=== PATIENT | female | born 1960 | race Caucasian/White ===

== ENCOUNTER → 2016-07-24 | Outpatient (CLI) | payer BC ==
[~2016-07-24] MED LIST: FLEXERIL10 MG PO; ISOSORBIDE30 MG PO; KLORVESS EFFER20 ME1 PO; LIPITOR; NORCO 325 MG-51 TAB PO; PLAVIX 75MG TAB75 MG PO; PREMARIN0.45 MG PO; PREMARIN0.9 MG PO; RANEXA500 MG PO; TRAZODONE50 MG PO; VALIUM5 MG PO
== END ==
LOC: COL.RAD 11:04
DX: R22.1 Localized swelling, mass and lump, neck (principal)

== ENCOUNTER → 2016-09-04 | Outpatient (CLI) | payer BC ==
[~2016-09-04] VITALS: Ht 157.5 cm; Wt 56.8 kg
[2016-09-04 09:12] VITALS: BP 118/77; PULSE 71
[2016-09-04 10:22] VITALS: BP 124/75; PULSE 64
== END ==
LOC: COL.RAD 08:56
DX: E04.1 Nontoxic single thyroid nodule (principal)
CPT/HCPCS: 13756

== ENCOUNTER 2016-11-28 19:43 | Emergency (ER) | payer BC ==
[~2016-11-28] VITALS: Ht 157.5 cm; Wt 57.3 kg
[2016-11-28 19:45] VITALS: TEMP 97.7
[2016-11-28] MEDS ORDERED: PREMARIN0.45 MG PO (20:01)
[2016-11-28 20:37] LABS: BASO % 0.5 % (0.0-2.0); EOS # 0.1 (0.0-0.7); EOS % 1.3 % (0-4.0); GRAN % 57.5 % (42.2-75.2); HEMATOCRIT 39.4 % (37.0-47.0); HEMOGLOBIN 13.6 g/dl (12.5-16.0); LYMPH % 34.3 % (20.0-51.0); MEAN CELL VOLUME 87 fl (80.0-100.0); MEAN CORPUSCULAR HEMOGLOBIN 30 pg (27.0-31.0); MEAN CORPUSCULAR HGB CONC 35 g/dl (33.0-37.0); MEAN PLATELET VOLUME 10.5 fl (7.4-10.4); MONO # 0.5 (0.1-0.6); MONO % 6.2 % (1.7-9.3); PLATELET COUNT 267 K/mm3 (130-400); RED BLOOD COUNT 4.53 M/mm3 (4.10-5.30); WHITE BLOOD COUNT 8.7 K/mm3 (4.8-10.8)
[2016-11-28 20:42] LABS: PH 6 (5-8); SQUAMOUS EPITHELIAL 0-2 /hpf; URINE APPEARANCE Clear; URINE BACTERIA None Seen /hpf; URINE BILIRUBIN Negative (NEGATIVE); URINE BLOOD Negative (NEGATIVE); URINE COLOR Yellow; URINE GLUCOSE Negative (NEGATIVE); URINE KETONE Negative (NEGATIVE); URINE RBC 0-2 /hpf; URINE UROBILINOGEN Negative (NEGATIVE); URINE WBC 0-2 /hpf
[2016-11-28 20:47] LABS: ALBUMIN 4.2 gm/dL (3.5-5.0); BILIRUBIN,TOTAL 0.8 mg/dL (0.0-1.0); CALCIUM 9.2 mg/dL (8.4-10.2); CREATININE, serum 1.01 mg/dL (0.52-1.25); POTASSIUM 3.6 mmol/L (3.4-5.0); TOTAL PROTEIN 7.2 gm/dL (6.4-8.2)
[2016-11-28 22:14] VITALS: BP 130/72; PULSE 76
== END 2016-11-28 22:17 | disposition home or self-care (01) ==
LOC: COL.ER 19:43
PROVIDERS: Emergency Medicine
DX: R10.31 Right lower quadrant pain (principal); I25.10 Atherosclerotic heart disease of native coronary artery without angina pectoris; I25.2 Old myocardial infarction; G43.909 Migraine, unspecified, not intractable, without status migrainosus; Z98.890 Other specified postprocedural states; Z90.710 Acquired absence of both cervix and uterus; Z98.51 Tubal ligation status; Z87.891 Personal history of nicotine dependence; Z95.9 Presence of cardiac and vascular implant and graft, unspecified
CPT/HCPCS: J7030; Q9967

== ENCOUNTER → 2016-12-22 | Outpatient (CLI) | payer BC | LOC: COL.RAD 08:15 | DX: R10.9 Unspecified abdominal pain (principal) ==

== ENCOUNTER → 2016-12-26 | Outpatient (CLI) | payer BC | LOC: COL.RAD 07:26 | DX: R10.11 Right upper quadrant pain (principal) | CPT/HCPCS: A9537 ==

== ENCOUNTER → 2017-04-04 | Outpatient (CLI) | payer BC | LOC: COL.RAD 14:26 | DX: R51 Headache (principal) | CPT/HCPCS: Q9967 ==

== ENCOUNTER → 2017-07-06 | Outpatient (CLI) | payer BC | LOC: MC.RAD 13:34 | DX: Z12.31 Encounter for screening mammogram for malignant neoplasm of breast (principal) ==

== ENCOUNTER 2017-08-05 10:31 | Emergency (ER) | payer BC ==
[~2017-08-05] VITALS: Ht 157.5 cm; Wt 56.4 kg
[2017-08-05 10:39] VITALS: TEMP 97
[2017-08-05 10:55] LABS: BASO % 0.3 % (0.0-2.0); EOS # 0.1 (0.0-0.7); EOS % 1.4 % (0-4.0); GRAN # 8.5 (1.4-6.5); HEMATOCRIT 38.6 % (37.0-47.0); HEMOGLOBIN 13.2 g/dl (12.5-16.0); LYMPH % 10.1 % (20.0-51.0); MEAN CELL VOLUME 88 fl (80.0-100.0); MEAN CORPUSCULAR HEMOGLOBIN 30 pg (27.0-31.0); MEAN CORPUSCULAR HGB CONC 34 g/dl (33.0-37.0); MEAN PLATELET VOLUME 10.3 fl (7.4-10.4); MONO # 0.3 (0.1-0.6); PLATELET COUNT 214 K/mm3 (130-400); RED BLOOD COUNT 4.37 M/mm3 (4.10-5.30); REDCELL DISTRIBUTION WIDTH-CV 12.5 % (11.5-14.5)
[2017-08-05] MEDS ORDERED: DESYREL 50MG50 MG PO (10:56)
[2017-08-05] MEDS ORDERED: LIPITOR20 MG PO (10:56)
[2017-08-05] MEDS ORDERED: PREMARIN .3MG0.3 MG PO (10:57)
[2017-08-05] MEDS ORDERED: NITROSTAT0.4 MG/TAB SL (10:58)
[2017-08-05 11:04] LABS: PARTIAL THROMBOPLASTIN TIME 28.7 SECONDS (26.0-37.0)
[2017-08-05 11:09] LABS: ALANINE AMINOTRANSFERASE 28 U/L (9-52); ALBUMIN 3.7 gm/dL (3.5-5.0); ALKALINE PHOSPHATASE 88 U/L (50-136); ANION GAP 10 mmol/L (7-16); AST,SGOT 21 U/L (15-37); BILIRUBIN,TOTAL 0.6 mg/dL (0.0-1.0); BLOOD UREA NITROGEN 13 mg/dL (7-17); CALCIUM 8.8 mg/dL (8.4-10.2); CARBON DIOXIDE 27 mmol/L (22-30); CHLORIDE 105 mmol/L (98-107); CREATININE, serum 0.99 mg/dL (0.52-1.25); GLUCOSE 118 mg/dL (74-106); POTASSIUM 3.3 mmol/L (3.4-5.0); SODIUM 141 mmol/L (137-145); TOTAL PROTEIN 6.4 gm/dL (6.4-8.2)
[2017-08-05 11:23] LABS: TROPONIN-I < 0.012 ng/mL (0.000-0.034)
[2017-08-05 14:04] VITALS: BP 131/79; PULSE 80
== END 2017-08-05 14:07 | disposition home or self-care (01) ==
LOC: COL.ER 10:31
PROVIDERS: Family Medicine
DX: I25.119 Atherosclerotic heart disease of native coronary artery with unspecified angina pectoris (principal); Z98.890 Other specified postprocedural states; Z79.02 Long term (current) use of antithrombotics/antiplatelets

== ENCOUNTER → 2017-08-14 | Outpatient (CLI) | payer BC ==
[2017-08-14] VITALS (7 sets, daily range): BP systolic 104–143; BP diastolic 62–77; PULSE 56–83
[~2017-08-14] VITALS: Ht 157.5 cm; Wt 54.3 kg
[~2017-08-14] MED LIST changes: +DESYREL 50MG50 MG PO; +IMDUR 60MG60 MG/TAB PO; -ISOSORBIDE30 MG PO; +LIPITOR 40MG TA40 MG PO; +LIPITOR20 MG PO; +NITROSTAT0.4 MG/TAB SL; +PREMARIN .3MG0.3 MG PO; +RANEXA 500MG T500 MG PO; -RANEXA500 MG PO
== END ==
LOC: COL.RAD 11:54
DX: I20.9 Angina pectoris, unspecified (principal); R55 Syncope and collapse; R07.9 Chest pain, unspecified
CPT/HCPCS: Q9967

== ENCOUNTER → 2018-06-10 | Outpatient (CLI) | payer BC | LOC: COL.VAS 13:53 | DX: M79.604 Pain in right leg (principal) ==

== ENCOUNTER → 2018-08-06 | Outpatient (CLI) | payer BC | LOC: MC.RAD 09:38 | DX: Z12.31 Encounter for screening mammogram for malignant neoplasm of breast (principal) ==

== ENCOUNTER → 2019-01-10 | Outpatient (CLI) | payer BC | LOC: COL.PUL 07:58 | DX: R06.02 Shortness of breath (principal); Z87.891 Personal history of nicotine dependence ==

== ENCOUNTER 2019-07-24 15:00 | Outpatient (RCR) | payer BC ==
[2019-08-19] MEDS ORDERED: PREMARIN0.45 MG PO (07:44)
[2019-08-19] MEDS ORDERED: ASPIRIN E.C. 8181 MG PO (07:45)
[2019-08-19] MEDS ORDERED: NORCO 325 MG-7.1 TAB PO (12:39)
== END 2019-08-25 | disposition home or self-care (01) ==
LOC: WSOT
DX: S63.601A Unspecified sprain of right thumb, initial encounter (principal)

== ENCOUNTER 2019-08-19 06:56 | Day surgery (SDC) | payer BC ==
[~2019-08-19] VITALS: Ht 157.5 cm; Wt 59.7 kg
[2019-08-19 07:33] VITALS: BP 111/63; PULSE 69; TEMP 97
[2019-08-19] MEDS ORDERED: PREMARIN0.45 MG PO (07:44)
[2019-08-19] MEDS ORDERED: ASPIRIN E.C. 8181 MG PO (07:45)
--- NOTE | 2019-08-19 07:46 | NUR ---
TO [place] AT 0711- CALL LIGHT IN REACH WANG KNOX INTO SEE PATIENT AND MARKED SITE/ PRE SCRUB DONE AT BEDSIDE.
[2019-08-19 11:36] VITALS: BP 126/72; PULSE 74; TEMP 97
--- NOTE | 2019-08-19 11:36 | NUR ---
TO RM 6 PER CART FROM OR. ANSWERS QUESTIONS WITH THE SLIGHTEST NOD. AT BEDSIDE. OPERATIVE ARM ELEVATED ON PILLOW. NO SIGNS OF DISCOMFORT AT THIS TIME. DRESSINGS CLEAN DRY INTACT.
[2019-08-19 11:50] VITALS: BP 129/68; PULSE 64
--- NOTE | 2019-08-19 11:50 | NUR ---
MORE AWAKE AND TALKING WITH STAFF AND . RECEIVED SPRITE PER PATIENT REQUEST.
--- NOTE | 2019-08-19 12:00 | NUR ---
SLIING PLACED ON RIGHT ARM DUE TO BLOCK AND MOVEMENTS UNCONTROLABLE. AMBULATED TO BATHROOM WITH ASSIST AND TOLERATED WELL. VOIDED AND AMBULATED BACK TO BED
[2019-08-19 12:25] VITALS: BP 130/73; PULSE 60
--- NOTE | 2019-08-19 12:25 | NUR ---
RECEIVED HÉCTOR GALINDO.
[2019-08-19] MEDS ORDERED: NORCO 325 MG-7.1 TAB PO (12:39)
[2019-08-19 12:40] VITALS: BP 132/64; PULSE 69
--- NOTE | 2019-08-19 12:40 | NUR ---
OPERATIVE HAND STILL HAS NO FEELING OR MOVEMENT. ATE 100% AND STATED READY TO GO HOME.
--- NOTE | 2019-08-19 13:10 | NUR ---
PATIENT AND RECEIVED DISCHARGE INSTRUCTIONS AND VERBALIZED UNDERSTANDING. DISCONTINED IV AND INT- CATHETER INTACT. ASSISTED PATIENT DRESSED TO STREET CLOTHES. WENT TO GET THE CAR.
--- NOTE | 2019-08-19 13:25 | NUR ---
DISCHARGED PER WC BY NURSING STAFF TO PRIVATE CAR IN CARE OF - [facility]
== END 2019-08-19 13:47 | disposition home or self-care (01) ==
LOC: SDCO 06:56
DX: S63.641A Sprain of metacarpophalangeal joint of right thumb, initial encounter (principal); Z88.6 Allergy status to analgesic agent; Z88.5 Allergy status to narcotic agent; Z79.82 Long term (current) use of aspirin; Z79.899 Other long term (current) drug therapy; E78.5 Hyperlipidemia, unspecified; I25.2 Old myocardial infarction; I25.10 Atherosclerotic heart disease of native coronary artery without angina pectoris; I10 Essential (primary) hypertension; G47.9 Sleep disorder, unspecified; F32.9 Major depressive disorder, single episode, unspecified; Z79.01 Long term (current) use of anticoagulants
CPT/HCPCS: C1713; J0690; J1100; J2250; J2405; J2704; J2795; J7120

== ENCOUNTER → 2019-08-29 | Outpatient (CLI) | payer BC ==
[~2019-08-29] MED LIST changes: +ASPIRIN E.C. 8181 MG PO; +NORCO 325 MG-7.1 TAB PO
== END ==
LOC: MC.RAD 14:37
DX: Z12.31 Encounter for screening mammogram for malignant neoplasm of breast (principal)

== ENCOUNTER → 2019-10-29 | Outpatient (CLI) | payer BC | LOC: COL.RAD 14:38 | DX: R10.31 Right lower quadrant pain (principal) | CPT/HCPCS: Q9967 ==

== ENCOUNTER → 2019-10-31 | Outpatient (CLI) | payer BC | LOC: MC.RAD 08:33 | DX: R59.0 Localized enlarged lymph nodes (principal) ==

== ENCOUNTER → 2019-12-16 | Outpatient (CLI) | payer BC | LOC: COL.VAS 07:00 | DX: I82.811 Embolism and thrombosis of superficial veins of right lower extremity (principal) ==

== ENCOUNTER 2019-12-17 15:15 | Outpatient (RCR) | payer BC | END 2019-12-28 | disposition home or self-care (01) | LOC: WSOT | DX: Z47.89 Encounter for other orthopedic aftercare (principal); Z98.890 Other specified postprocedural states ==

== ENCOUNTER → 2020-10-20 | Outpatient (CLI) | payer BC | LOC: MC.RAD 10:30 | DX: Z12.31 Encounter for screening mammogram for malignant neoplasm of breast (principal); N63.21 Unspecified lump in the left breast, upper outer quadrant ==

== ENCOUNTER → 2020-10-25 | Outpatient (CLI) | payer BC | LOC: MC.RAD 13:54 | DX: N60.02 Solitary cyst of left breast (principal); N60.42 Mammary duct ectasia of left breast ==

== ENCOUNTER → 2020-11-09 | Outpatient (CLI) | payer BC | LOC: MC.RAD 07:55 | DX: N63.20 Unspecified lump in the left breast, unspecified quadrant (principal); N60.22 Fibroadenosis of left breast; Z98.82 Breast implant status ==

== ENCOUNTER 2021-05-03 22:45 | Emergency (ER) | payer BC ==
[~2021-05-03] VITALS: Ht 157.5 cm; Wt 77.3 kg
[2021-05-03 22:48] VITALS: TEMP 97.6
[2021-05-03 23:17] LABS: BASO % 0.4 % (0.0-2.0); EOS # 0.2 K/mm3 (0.0-0.7); EOS % 2.6 % (0-4.0); GRAN # 3.5 K/mm3 (1.4-6.5); GRAN % 46.4 % (42.2-75.2); HEMOGLOBIN 13.1 g/dl (12.5-16.0); LYMPH # 3.2 K/mm3 (1.2-3.4); MEAN CELL VOLUME 87 fl (80.0-100.0); MEAN CORPUSCULAR HEMOGLOBIN 31 pg (27.0-31.0); MEAN CORPUSCULAR HGB CONC 35 g/dl (33.0-37.0); MEAN PLATELET VOLUME 10.5 fl (7.4-10.4); MONO # 0.6 K/mm3 (0.1-0.6); MONO % 8.3 % (1.7-9.3); PLATELET COUNT 243 K/mm3 (130-400); RED BLOOD COUNT 4.26 M/mm3 (4.10-5.30)
[2021-05-03 23:42] LABS: BILIRUBIN,TOTAL 0.5 mg/dL (0.2-1.2); CALCIUM 9.6 mg/dL (8.4-10.2); CREATININE, serum 0.95 mg/dL (0.57-1.11); POTASSIUM 3.6 mmol/L (3.5-4.5); TOTAL PROTEIN 6.6 gm/dL (6.2-8.1)
[2021-05-03 23:48] LABS: TROPONIN-I 0.01 ng/mL (0.00-0.033)
[2021-05-04 03:32] VITALS: BP 142/70; PULSE 76
== END 2021-05-04 03:32 | disposition home or self-care (01) ==
LOC: COL.ER 22:45
PROVIDERS: Student in an Organized Health Care Education/Training Program
DX: R07.9 Chest pain, unspecified (principal); R10.31 Right lower quadrant pain; G43.909 Migraine, unspecified, not intractable, without status migrainosus; Z88.6 Allergy status to analgesic agent; Z79.1 Long term (current) use of non-steroidal anti-inflammatories (NSAID)

== ENCOUNTER → 2021-07-04 | Outpatient (CLI) | payer BC | LOC: COL.PUL 07:11 | DX: R09.02 Hypoxemia (principal) ==

== ENCOUNTER → 2021-11-08 | Outpatient (CLI) | payer BC | LOC: MC.RAD 12:59 | DX: Z12.31 Encounter for screening mammogram for malignant neoplasm of breast (principal); N64.89 Other specified disorders of breast ==

== ENCOUNTER → 2021-11-11 | Outpatient (CLI) | payer BC | LOC: MC.RAD 09:52 | DX: N64.89 Other specified disorders of breast (principal) ==

== ENCOUNTER → 2024-01-07 | Outpatient (CLI) | payer BC | LOC: MC.RAD 09:03 | DX: Z12.31 Encounter for screening mammogram for malignant neoplasm of breast (principal); N64.89 Other specified disorders of breast ==

== ENCOUNTER → 2024-01-15 | Outpatient (CLI) | payer BC | LOC: MC.RAD 14:55 | DX: N60.02 Solitary cyst of left breast (principal) ==

== ENCOUNTER → 2024-02-14 | Outpatient (CLI) | payer BC ==
[~2024-02-14] MED LIST changes: +Gadoterate 15 ML VIAL IV ONE
== END ==
LOC: COL.RAD 09:45
DX: G44.52 New daily persistent headache (NDPH) (principal)
CPT/HCPCS: A9575